=== PATIENT | female | born 1950 | race Caucasian/White ===

== ENCOUNTER 2017-04-23 22:51 | Emergency (ER) | payer MEDICARE, BC ==
[2017-04-23 23:23] VITALS: BP 140/84
[2017-04-23] MEDS ORDERED: Ketorolac 60 MG/2 ML SDV IM ONE (23:32)
[2017-04-23] MEDS ORDERED: Acetaminophen/HYDROcodone 325-5 MG Tab PO ONE (23:32)
--- NOTE | 2017-04-24 00:20 | EDM.PDOC ---
ED HPI GENERAL MEDICAL PROBLEM - General Chief Complaint: Lower Extremity Injury/Pain Stated Complaint: HURT FOOT Time Seen by Provider: 04/23/17 23:11 Source of Information: Reports: Patient History Limitations: Reports: No Limitations - History of Present Illness INITIAL COMMENTS - FREE TEXT/NARRATIVE: left foot and ankle pain; this is a 67 year old female present to ER with Son. reports at 4 pm today, her Grandchildren were making a tent out of chair, she went to observe and a heavy oak dining chair fell on her ankle foot. now with throbbing pain, increase pain with walking. she could no longer stand the pain and came to ER for evaluation. no other concerns. Onset: Today Onset Date: 04/23/17 Onset Time: 16:00 Duration: Hour(s): Location: Reports: Lower Extremity, Left Quality: Reports: Sharp, Throbbing Severity: Moderate Improves with: Reports: None Worsens with: Reports: Movement Context: Reports: Other (blunt force injury) Associated Symptoms: Reports: No Other Symptoms Treatments CLINICAL PROFESSOR: Reports: Acetaminophen left foot Pain Score (Numeric/FACES): 10 - Related Data Allergies Allergy/AdvReac Type Severity Reaction Status Date / Time No Known Allergies Allergy Verified 04/23/17 23:49 Home Meds: Home Meds NK [No Known Home Meds] 04/23/17 [History] Past Medical History 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: - Past Surgical History HEENT Surgical History: Reports: Eye Surgery Female Surgical History: Reports: Section Social & Family History - Tobacco Use Smoking Status *Q: Current Every Day Smoker Years of Tobacco use: 55 Packs/Tins Daily: 0.7 - Alcohol Use Days Per Week of Alcohol Use: 3 Number of Drinks Per Day: 5 Total Drinks Per Week: 15 - Recreational Drug Use Recreational Drug Use: No Review of Systems - Review of Systems Review Of Systems: See Below Constitutional: Reports: Other (left ankle and foot didi) Eyes: Reports: No Symptoms Ears: Reports: No Symptoms Nose: Reports: No Symptoms Mouth/Throat: Reports: No Symptoms Respiratory: Reports: No Symptoms Cardiovascular: Reports: No Symptoms GI/Abdominal: Reports: No Symptoms Skin: Reports: Bruising (left ankle) Neurological: Reports: No Symptoms Psychiatric: Reports: No Symptoms ED EXAM, GENERAL - Physical Exam Exam: See Below Exam Limited By: No Limitations General Appearance: Alert, WD/WN, No Apparent Distress, Other (sitting in wheelchair.) Head: Atraumatic, Normocephalic Neck: Normal Inspection, Supple Respiratory/Chest: No Respiratory Distress Extremities: Limited Range of Motion, Other (left anterior ankle with small bruising noted, has increased pain with any movement.) Neurological: Alert, Oriented, No Motor/Sensory Deficits Psychiatric: Normal Affect, Normal Mood Skin Exam: Warm, Dry, Intact, Ecchymosis (2cm area of brusing is noted to anterior ankle and foot. ) Lymphatic: No Adenopathy Course - Vital Signs Last Recorded V/S: Last Vital Signs Temp 35.9 C 04/23/17 23:34 Pulse 74 04/23/17 23:34 Resp 20 04/23/17 23:34 BP 140/84 04/23/17 23:34 Pulse Ox 99 04/23/17 23:34 - Orders/Labs/Meds Orders: Active Orders 24 hr Category Date Time Status Ankle Min 3V Lt [CR] Stat Exams 04/23/17 23:30 Taken Foot 2V Lt [CR] Stat Exams 04/23/17 23:30 Taken DME for Discharge [COMM] Urgent Oth 04/24/17 00:15 Ordered Meds: Medications Discontinued Medications Generic Name Dose Route Start Last Admin Trade Name Freq PRN Reason Stop Dose Admin Hydrocodone Bitart/Acetaminophen 1 tab 04/23/17 23:32 04/23/17 23:39 [place] 325-5 Mg PO 04/23/17 23:33 1 tab ONETIME ONE Administration Ketorolac Tromethamine 60 mg 04/23/17 23:32 04/23/17 23:40 Toradol IM 04/23/17 23:33 60 mg ONETIME ONE Administration - Radiology Interpretation Free Text/Narrative:: xray of foot and ankle are negative for acute bony injury this was reviewed with Macey Jillian, advised to follow up with Primary Care in 3 to4 days for recheck will place in Ortho boot for comfort Mrs. Walsh agrees with plan of care Departure - Departure Time of Disposition: 00:49 Disposition: Home, Self-Care 01 Clinical Impression: Ankle contusion Qualifiers: Encounter type: initial encounter Laterality: left Qualified Code(s): S90.02XA - Contusion of left ankle, initial encounter - Discharge Information Instructions: Contusion, [id number] Referrals: PCP,None [Primary Care Provider] - Forms: ED Department Discharge Care Plan Goals: Ankle Contusion -Xray of foot and ankle are negative for broken bone, await radiologist report -wear Orthopedic boot until xray reports are complete -follow up with Primary Care Provider in 3 days -Tramadol 50mg 1 tab every 6 hr as needed for pain -over the counter; Tylenol or Motrin for pain Advise -rest -no weight bearing, wear orthopedic boot -ice for comfort -take medication as prescribed. Return to Clinic or ER for any increase pain,fever, chills, nausea, vomiting, rash or not improved - Problem List & Annotations (1) Ankle contusion SNOMED Code(s): 91760669 Code(s): S90.00XA - CONTUSION OF UNSPECIFIED ANKLE, INITIAL ENCOUNTER Status: Acute Priority: Medium Qualifiers: Encounter type: initial encounter Laterality: left Qualified Code(s): S90.02XA - Contusion of left ankle, initial encounter - Problem List Review Problem List Initiated/Reviewed/Updated: Yes - My Orders Last 24 Hours: My Active Orders 04/23/17 23:30 Ankle Min 3V Lt [CR] Stat Foot 2V Lt [CR] Stat 04/24/17 00:15 DME for Discharge [COMM] Urgent - Assessment/Plan Last 24 Hours: My Active Orders 04/23/17 23:30 Ankle Min 3V Lt [CR] Stat Foot 2V Lt [CR] Stat 04/24/17 00:15 DME for Discharge [COMM] Urgent Plan: Ankle Contusion -Xray of foot and ankle are negative for broken bone, await radiologist report -wear Orthopedic boot until xray reports are complete -follow up with Primary Care Provider in 3 days -Tramadol 50mg 1 tab every 6 hr as needed for pain -over the counter; Tylenol or Motrin for pain Advise -rest -no weight bearing, wear orthopedic boot -ice for comfort -take medication as prescribed. Return to Clinic or ER for any increase pain,fever, chills, nausea, vomiting, rash or not improved
--- NOTE | 2017-04-25 09:08 | CR ---
Ankle Min 3V Lt, Foot 2V Lt INDICATION: pain and bruising at anterior foot. FINDINGS: Negative left foot and ankle. No acute fracture.
--- NOTE | 2017-04-25 09:08 | CR ---
Ankle Min 3V Lt, Foot 2V Lt INDICATION: pain and bruising at anterior foot. FINDINGS: Negative left foot and ankle. No acute fracture.
== END 2017-04-24 00:49 | disposition home or self-care (01) ==
LOC: JP.ED 22:51
DX: S90.02XA Contusion of left ankle, initial encounter (principal); S90.32XA Contusion of left foot, initial encounter; F17.210 Nicotine dependence, cigarettes, uncomplicated; Z98.890 Other specified postprocedural states; W20.8XXA Other cause of strike by thrown, projected or falling object, initial encounter
CPT/HCPCS: 73610; 73620; 96372; 99284; A9270; J1885; 99283

== ENCOUNTER 2021-08-29 11:44 | Emergency (ER) | payer MEDICARE, BC ==
[2021-08-29 12:16] VITALS: BP 165/84; PULSE 99
[2021-08-29] MEDS: Ondansetron 4 MG Tab.DIS PO ONE (12:40)
[2021-08-29] MEDS: Ibuprofen 400 MG Tab PO ONE (12:41)
[2021-08-29] MEDS: Famotidine 20 MG Tab PO ONE (12:42)
[2021-08-29 13:22] LABS: CORONAVIRUS COVID-19 NAA POSITIVE (NEGATIVE)
== END 2021-08-29 13:48 | disposition home or self-care (01) ==
LOC: JP.ED 11:44
DX: U07.1 COVID-19 (principal); J01.00 Acute maxillary sinusitis, unspecified; Z72.0 Tobacco use
CPT/HCPCS: 0241U; 99283; 99284; A9270-GY; Q0162

== ENCOUNTER 2021-08-30 17:51 | Inpatient (IN) | payer MEDICARE, BC ==
[2021-08-30] MEDS ORDERED: Lactated Ringers 1,000 ML IV ONE (17:59)
[2021-08-30] MEDS ORDERED: Acetaminophen 325 MG Tab PO PRN (17:59)
[2021-08-30] MEDS ORDERED: Dexamethasone 4 MG/ML SDV IVPUSH SCH (18:15)
[2021-08-30] MEDS ORDERED: Sodium Chloride 3% 500 ML IV SCH (19:30)
[2021-08-30] MEDS ORDERED: REMDESIVIR 200 MG in Sodium Chloride 0.9% 250 ML IV ONE (19:34)
[2021-08-30] MEDS ORDERED: Potassium Chloride 20 MEQ Tab.ER PO ONE (20:07)
[2021-08-30] MEDS ORDERED: Sodium Chloride 0.9% 1,000 ML IV SCH (20:15)
[2021-08-30] MEDS ORDERED: Polyethylene Glycol 3350 Powder 17 GM Packet PO PRN (20:54)
[2021-08-30] MEDS ORDERED: Sodium Chloride 0.9% 10 ML Syringe FLUSH PRN (20:54)
[2021-08-30] MEDS: Enoxaparin 40 MG/0.4 ML Syringe SUBCUT SCH (22:22)
[2021-08-30] MEDS: Melatonin 3 MG Tab PO PRN (22:22)
[2021-08-30] MEDS: Acetaminophen 325 MG Tab PO PRN (22:23)
[2021-08-30] MEDS: Ondansetron 4 MG/2 ML SDV IV PRN (22:26)
[2021-08-31] MEDS ORDERED: Ibuprofen 400 MG Tab PO ONE (00:41)
[2021-08-31] MEDS ORDERED: diphenhydrAMINE 25 MG Cap PO ONE (00:42)
[2021-08-31] MEDS: Ondansetron 4 MG/2 ML SDV IV PRN ×2 (06:30→10:52)
[2021-08-31] MEDS ORDERED: Sodium Chloride 3% 500 ML IV SCH (10:30)
[2021-08-31] MEDS ORDERED: Sodium Chloride 3% 100 ML IV SCH ×2 (10:39→15:30)
[2021-08-31] MEDS: Acetaminophen 325 MG Tab PO PRN (10:52)
[2021-08-31] MEDS: Prochlorperazine 10 MG Tab PO PRN (12:44)
[2021-08-31] MEDS: LORazepam 0.5 MG Tab PO PRN ×2 (12:44→23:59)
[2021-08-31] MEDS: Enoxaparin 40 MG/0.4 ML Syringe SUBCUT SCH (20:14)
[2021-08-31] MEDS: REMDESIVIR 100 MG in Sodium Chloride 0.9% 100 ML IV SCH (20:14)
[2021-08-31] MEDS: Dexamethasone 4 MG/ML SDV IVPUSH SCH (20:14)
[2021-08-31] MEDS: Melatonin 3 MG Tab PO PRN (23:59)
[2021-09-01] MEDS: LORazepam 0.5 MG Tab PO PRN ×4 (05:55→22:35)
[2021-09-01] MEDS: Acetaminophen 325 MG Tab PO PRN (05:56)
[2021-09-01] MEDS: Ondansetron 4 MG/2 ML SDV IV PRN ×3 (05:56→22:24)
[2021-09-01] MEDS ORDERED: Potassium Chloride 20 MEQ Tab.ER PO ONE (08:20)
[2021-09-01] MEDS: Prochlorperazine 10 MG Tab PO PRN (16:18)
[2021-09-01] MEDS: Dexamethasone 4 MG/ML SDV IVPUSH SCH (22:20)
[2021-09-01] MEDS: Enoxaparin 40 MG/0.4 ML Syringe SUBCUT SCH (22:22)
[2021-09-01] MEDS: REMDESIVIR 100 MG in Sodium Chloride 0.9% 100 ML IV SCH (22:23)
[2021-09-01] MEDS: Melatonin 3 MG Tab PO PRN (22:35)
[2021-09-02] MEDS: Ondansetron 4 MG/2 ML SDV IV PRN ×2 (06:13→13:28)
[2021-09-02] MEDS ORDERED: Potassium Chloride 20 MEQ Tab.ER PO ONE (08:14)
[2021-09-02] MEDS: LORazepam 0.5 MG Tab PO PRN ×2 (08:17→18:41)
[2021-09-02] MEDS ORDERED: Iopamidol 612 MG/ML 100 ML Bottle IV SCH (15:00)
[2021-09-02] MEDS ORDERED: Sodium Chloride 0.9% 80 ML IV SCH (15:00)
[2021-09-02] MEDS ORDERED: Nicotine 21 MG/24 Hr Patch TRDERM SCH (18:00)
[2021-09-02] MEDS: Dexamethasone 4 MG/ML SDV IVPUSH SCH (20:36)
[2021-09-02] MEDS: Melatonin 3 MG Tab PO PRN (20:36)
[2021-09-02] MEDS: Enoxaparin 40 MG/0.4 ML Syringe SUBCUT SCH (20:37)
[2021-09-02] MEDS: REMDESIVIR 100 MG in Sodium Chloride 0.9% 100 ML IV SCH (20:37)
[2021-09-03] MEDS: LORazepam 0.5 MG Tab PO PRN ×3 (02:16→16:16)
[2021-09-03] MEDS: Acetaminophen 325 MG Tab PO PRN (05:03)
[2021-09-03] MEDS: Prochlorperazine 10 MG Tab PO PRN (13:22)
[2021-09-03] MEDS ORDERED: Nicotine 21 MG/24 Hr Patch TRDERM SCH (18:00)
[2021-09-03] MEDS: REMDESIVIR 100 MG in Sodium Chloride 0.9% 100 ML IV SCH (20:46)
[2021-09-03] MEDS: Dexamethasone 4 MG/ML SDV IVPUSH SCH (20:55)
[2021-09-03] MEDS: Enoxaparin 40 MG/0.4 ML Syringe SUBCUT SCH (20:56)
[2021-09-03] MEDS: Melatonin 3 MG Tab PO PRN (22:36)
[2021-09-04 07:47] VITALS: BP 130/72; PULSE 84
== END 2021-09-04 11:00 | disposition home or self-care (01) | DRG 177 ==
LOC: JP.ED 17:51 → JP.2SS 20:10
PROVIDERS: ADMIT Hospitalist; ATTEND Internal Medicine
PROC: 8E0ZXY6 Isolation (ICD-10-PCS; principal; 2021-08-30)
PROC: XW033E5 Introduction of Remdesivir Anti-infective into Peripheral Vein, Percutaneous Approach, New Technology Group 5 (ICD-10-PCS; 2021-08-30)
PROC: 3E0333Z Introduction of Anti-inflammatory into Peripheral Vein, Percutaneous Approach (ICD-10-PCS; 2021-08-30)
DX: U07.1 COVID-19 (principal); J12.82 Pneumonia due to coronavirus disease 2019; E87.1 Hypo-osmolality and hyponatremia; N83.8 Other noninflammatory disorders of ovary, fallopian tube and broad ligament; J43.1 Panlobular emphysema; R09.02 Hypoxemia; Z72.0 Tobacco use; Z86.16 Personal history of COVID-19; Z98.890 Other specified postprocedural states
CPT/HCPCS: 36415; 71045; 71045-26; 71260; 74177; 76857; 76857-26; 80048; 80053; 81001; 82248; 82728; 82803; 83550; 83605; 83615; 84145; 84295; 84439; 84443; 84484; 85025; 85379; 86140; 93005; 93010; 94762; 97110-GP; 97162-GP; 97530-GP; 99285; 99285-25; A9270-GY; J0248; J1100; J1650; J2405; J7030; J7050; J7120; J7131; Q0164; Q9967

== ENCOUNTER 2021-10-15 07:52 | Emergency (ER) | payer MEDICARE, BC ==
[2021-10-15 08:37] VITALS: BP 141/73; PULSE 76
[2021-10-15] MEDS ORDERED: methylPREDNISolone Sodium Succinate 125 MG/2 ML SDV IM ONE (09:15)
== END 2021-10-15 10:52 | disposition home or self-care (01) ==
LOC: JP.ED 07:52
DX: R41.0 Disorientation, unspecified (principal); F41.9 Anxiety disorder, unspecified; F17.210 Nicotine dependence, cigarettes, uncomplicated; Z88.0 Allergy status to penicillin; Z88.1 Allergy status to other antibiotic agents
CPT/HCPCS: 36415; 70450; 80053; 82550; 85025; 99282; 99285-25

== ENCOUNTER 2021-12-12 22:17 | Emergency (ER) | payer MEDICARE, BC ==
[2021-12-12 23:06] VITALS: BP 168/82; PULSE 87
== END 2021-12-13 00:04 | disposition home or self-care (01) ==
LOC: JP.ED 22:17
DX: M54.50 Low back pain, unspecified (principal); F41.9 Anxiety disorder, unspecified; Z79.899 Other long term (current) drug therapy; Z88.0 Allergy status to penicillin; Z88.1 Allergy status to other antibiotic agents
CPT/HCPCS: 99283; 99284

== ENCOUNTER 2022-07-04 11:04 | Emergency (ER) | payer MEDICARE, BC ==
[2022-07-04] MEDS ORDERED: Sodium Chloride 0.9% 10 ML Syringe FLUSH PRN (11:53)
[2022-07-04] MEDS ORDERED: fentaNYL 100 MCG/2 ML SDV IVPUSH ONE (11:55)
[2022-07-04] MEDS ORDERED: Albuterol/Ipratropium 3.0-0.5 MG/3 ML Neb Soln NEB ONE (11:57)
[2022-07-04] MEDS ORDERED: Lactated Ringers 1,000 ML IV SCH (12:00)
[2022-07-04] MEDS ORDERED: Iopamidol 612 MG/ML 100 ML Bottle IV PRN (12:15)
[2022-07-04] MEDS ORDERED: Sodium Chloride 0.9% 100 ML IV SCH (12:15)
[2022-07-04 12:50] LABS: ESTIMATED GFR 98 mL/min (>60); TROPONIN I HIGH SENSITIVITY 7.9 pg/mL (<=60.3)
[2022-07-04 14:12] VITALS: BP 144/73; PULSE 75
== END 2022-07-04 14:49 | disposition home or self-care (01) ==
LOC: JP.ED 11:04
DX: R19.00 Intra-abdominal and pelvic swelling, mass and lump, unspecified site (principal); J44.9 Chronic obstructive pulmonary disease, unspecified; Z72.0 Tobacco use; Z88.1 Allergy status to other antibiotic agents; Z88.0 Allergy status to penicillin
CPT/HCPCS: 36415; 71046; 74177; 80053; 81001; 83605; 83690; 84145; 84484; 85025; 93005; 94640; 96361; 96374; 99284; J3010; J3490; J7120; Q9967; J7620

== ENCOUNTER 2022-07-09 19:06 | Emergency (ER) | payer MEDICARE, BC ==
[2022-07-09 19:13] VITALS: BP 175/94; PULSE 96
[2022-07-09 20:34] LABS: ESTIMATED GFR 98 mL/min (>60)
[2022-07-09 20:55] LABS: CORONAVIRUS COVID-19 NAA NEGATIVE (NEGATIVE)
== END 2022-07-09 22:21 | disposition home or self-care (01) ==
LOC: JP.ED 19:06
DX: J40 Bronchitis, not specified as acute or chronic (principal); M54.50 Low back pain, unspecified; J44.9 Chronic obstructive pulmonary disease, unspecified; F17.210 Nicotine dependence, cigarettes, uncomplicated; Z88.0 Allergy status to penicillin; Z88.1 Allergy status to other antibiotic agents; Z20.822 Contact with and (suspected) exposure to COVID-19
CPT/HCPCS: 0241U; 36415; 70450; 71045; 80053; 85025; 99284

== ENCOUNTER 2022-08-19 10:10 | Day surgery (SDC) | payer MEDICARE, BC ==
[2022-08-19] MEDS ORDERED: Sodium Chloride 0.9% 10 ML Syringe FLUSH PRN (12:49)
[2022-08-19] MEDS ORDERED: Ciprofloxacin in D5W 400 MG in Premix Bag 1 BAG IV ONE ×2 (12:50)
[2022-08-19] MEDS ORDERED: metroNIDAZOLE/Normal Saline 500 MG in Premix Bag 1 BAG IV ONE (12:51)
[2022-08-19] MEDS ORDERED: Sodium Chloride 0.9% 1,000 ML IV SCH ×2 (13:00→15:30)
[2022-08-19] MEDS ORDERED: Meropenem 500 MG SDV ONE (13:49)
[2022-08-19] MEDS ORDERED: Lidocaine 1% with EPINEPHrine 1:100,000 50 ML MDV ONE (13:50)
[2022-08-19] MEDS ORDERED: Propofol 200 MG/20 ML SDV ONE (14:39)
[2022-08-19] MEDS ORDERED: Midazolam 1 MG/ML 2 ML SDV ONE (14:39)
[2022-08-19] MEDS ORDERED: fentaNYL 100 MCG/2 ML SDV ONE (14:39)
[2022-08-19 14:47] LABS: CORONAVIRUS COVID-19 NAA NEGATIVE (NEGATIVE)
[2022-08-19] MEDS ORDERED: Ondansetron 4 MG Tab.DIS PO PRN (15:32)
[2022-08-19] MEDS ORDERED: Acetaminophen 500 MG Tab PO SCH (16:00)
[2022-08-19] MEDS: oxyCODONE 5 MG Tab PO PRN (20:19)
[2022-08-19] MEDS: metroNIDAZOLE/Normal Saline 500 MG in Premix Bag 1 BAG IV SCH (21:10)
[2022-08-19] MEDS: Acetaminophen 500 MG Tab PO SCH (21:10)
[2022-08-20] MEDS ORDERED: Ciprofloxacin in D5W 400 MG in Premix Bag 1 BAG IV SCH ×2 (02:00)
[2022-08-20] MEDS: oxyCODONE 5 MG Tab PO PRN ×2 (02:34→09:00)
[2022-08-20] MEDS: Acetaminophen 500 MG Tab PO SCH (05:30)
[2022-08-20] MEDS: metroNIDAZOLE/Normal Saline 500 MG in Premix Bag 1 BAG IV SCH (05:31)
[2022-08-20 06:35] LABS: ESTIMATED GFR 123 mL/min (>60)
[2022-08-20 07:15] VITALS: BP 125/68; PULSE 80
== END 2022-08-20 11:32 | disposition home or self-care (01) ==
LOC: JP.ED 10:10 → JP.SDS 13:30 → JP.ICU 15:27 → UNDOADMOB 15:27 → JP.ICU 15:27 → UNDODISOB 08-20 10:25 → JP.SDS 08-20 11:32
PROVIDERS: ATTEND Student in an Organized Health Care Education/Training Program
DX: T81.31XA Disruption of external operation (surgical) wound, not elsewhere classified, initial encounter (principal); K43.9 Ventral hernia without obstruction or gangrene; C56.9 Malignant neoplasm of unspecified ovary; K55.069 Acute infarction of intestine, part and extent unspecified; J44.9 Chronic obstructive pulmonary disease, unspecified; G89.29 Other chronic pain; M54.9 Dorsalgia, unspecified; J90 Pleural effusion, not elsewhere classified; K21.9 Gastro-esophageal reflux disease without esophagitis; Z79.899 Other long term (current) drug therapy; Z20.822 Contact with and (suspected) exposure to COVID-19; Z88.0 Allergy status to penicillin; Z88.1 Allergy status to other antibiotic agents; Z90.710 Acquired absence of both cervix and uterus; Z98.890 Other specified postprocedural states; Z87.891 Personal history of nicotine dependence
CPT/HCPCS: 0241U; 36415; 49255; 49900; 71046; 80048; 80053; 82040; 85025; 85027; 88305; 88341; 88342; 93005; 93010; 96365; 96375; 99285; A9270; J0744; J2185; J2250; J2704; J3010; J3490; J7030; U0002

== ENCOUNTER 2023-02-13 13:47 | Emergency (ER) | payer MEDICARE, BC ==
[2023-02-13 15:55] LABS: BASOPHILS ABSOLUTE AUTO 0.06 K/uL (0.00-0.10); BASOPHILS PERCENT AUTO 0.7 % (0.1-1.3); EOSINOPHILS ABSOLUTE AUTO 0.54 K/uL (0.00-0.40); EOSINOPHILS PERCENT AUTO 6.1 % (0.0-5.4); HEMATOCRIT 38.3 % (34.3-46.0); HEMOGLOBIN 12.1 g/dL (11.2-15.5); IMMATURE GRAN ABSOLUTE AUTO 0.03 K/uL (0.00-0.23); IMMATURE GRAN PERCENT AUTO 0.3 % (0.0-0.7); LYMPHOCYTES ABSOLUTE AUTO 1.66 K/uL (0.8-3.3); LYMPHOCYTES PERCENT AUTO 18.6 % (11.4-47.7); MEAN CORPUSCULAR HEMOGLOBIN 26.1 pg (31.6-35.5); MEAN CORPUSCULAR HGB CONC 31.6 g/dL (31.6-35.5); MEAN CORPUSCULAR VOLUME 82.5 fL (81.4-99.0); MONOCYTES ABSOLUTE AUTO 0.92 K/uL (0.20-0.90); MONOCYTES PERCENT AUTO 10.3 % (3.3-12.6); PLATELET COUNT,PLT 459 K/uL (130-375); RED BLOOD CELL COUNT 4.64 M/uL (3.77-5.24); WHITE BLOOD CELL COUNT,WBC 8.9 K/uL (3.2-11.0)
[2023-02-13 16:10] LABS: CREATININE 0.4 mg/dL (0.6-1.0); EST CRCL DRUG DOSING (CG) 95.42 mL/min; POTASSIUM,K 4.4 mmol/L (3.6-5.2)
[2023-02-13 16:26] LABS: ANION GAP 10.4 mmol/L (5.0-14.0)
[2023-02-13 16:40] VITALS: BP 149/78; PULSE 87
== END 2023-02-13 17:14 | disposition home or self-care (01) ==
LOC: JP.ED 13:47
DX: R05.3 Chronic cough (principal); J44.9 Chronic obstructive pulmonary disease, unspecified; Z87.891 Personal history of nicotine dependence; Z88.1 Allergy status to other antibiotic agents; Z88.0 Allergy status to penicillin; Z79.899 Other long term (current) drug therapy
CPT/HCPCS: 36415; 71046; 71046-26; 80048; 85025; 99285

== ENCOUNTER 2023-05-26 12:15 | Inpatient (IN) | payer MEDICARE, BC ==
[2023-05-26] MEDS ORDERED: Ondansetron 4 MG/2 ML SDV IV PRN (12:45)
[2023-05-26] MEDS ORDERED: Albuterol 0.083% 2.5 MG/3 ML Neb Soln NEB PRN (12:45)
[2023-05-26] MEDS ORDERED: Polyethylene Glycol 3350 Powder 17 GM Packet PO PRN (12:45)
[2023-05-26] MEDS ORDERED: Sodium Chloride 0.9% 10 ML Syringe FLUSH PRN (12:45)
[2023-05-26 13:10] LABS: BASE EXCESS ARTERIAL 7.8 mm/L; BICARBONATE,ARTERIAL 33.1 mmol/L (22.0-26.0); CARBOXYHEMOGLOBIN 2.3 % (0.0-1.6); METHEMOGLOBIN 0.8 %; O2 SATURATION ARTERIAL 94.2 % (95.0-98.0); OXYHEMOGLOBIN 91.3 %; PCO2 ARTERIAL 52.4 mmHg (35.0-42.0); PO2 ARTERIAL 65.7 mmHg (75.0-100.0); TOTAL HEMOGLOBIN 9.9 g/dL (12.0-16.0)
[2023-05-26 13:12] LABS: BASOPHILS PERCENT AUTO 0.1 % (0.1-1.3); HEMATOCRIT 30.7 % (34.3-46.0); HEMOGLOBIN 9.5 g/dL (11.2-15.5); IMMATURE GRAN ABSOLUTE AUTO 0.09 K/uL (0.00-0.23); IMMATURE GRAN PERCENT AUTO 0.7 % (0.0-0.7); LYMPHOCYTES ABSOLUTE AUTO 0.62 K/uL (0.8-3.3); LYMPHOCYTES PERCENT AUTO 4.6 % (11.4-47.7); MEAN CORPUSCULAR HEMOGLOBIN 25.9 pg (31.6-35.5); MEAN CORPUSCULAR HGB CONC 30.9 g/dL (31.6-35.5); MEAN CORPUSCULAR VOLUME 83.7 fL (81.4-99.0); MONOCYTES ABSOLUTE AUTO 0.68 K/uL (0.20-0.90); NEUTROPHILS ABSOLUTE AUTO 12.15 K/uL (1.0-7.6); NEUTROPHILS PERCENT AUTO 89.6 % (40.0-78.1); PLATELET COUNT,PLT 315 K/uL (130-375); RED BLOOD CELL COUNT 3.67 M/uL (3.77-5.24); WHITE BLOOD CELL COUNT,WBC 13.6 K/uL (3.2-11.0)
[2023-05-26 13:14] LABS: BASOPHILS ABSOLUTE AUTO 0.01 K/uL (0.00-0.10)
[2023-05-26] MEDS: Sodium Chloride 0.9% 1,000 ML IV SCH ×2 (13:18→23:17)
[2023-05-26 13:35] LABS: A/G RATIO 0.6 (1.2-2.2); ALANINE AMINOTRANSFERASE,ALT 11 U/L (12-78); ALBUMIN 2.5 g/dL (3.4-5.0); ALKALINE PHOSPHATASE 70 U/L (46-116); ANION GAP 8.5 mmol/L (5.0-14.0); ASPARTATE AMNIOTRANSFERASE,AST 18 U/L (15-37); BILIRUBIN TOTAL 0.3 mg/dL (0.2-1.0); BLOOD UREA NITROGEN,BUN 15 mg/dL (7-18); CARBON DIOXIDE,CO2 33 mmol/L (21-32); CHLORIDE,CL 97 mmol/L (100-108); CREATININE 0.3 mg/dL (0.6-1.0); EST CRCL DRUG DOSING (CG) 117.41 mL/min; ESTIMATED GFR 111 mL/min (>60); GLUCOSE RANDOM 92 mg/dL (74-106); MAGNESIUM 1.9 mg/dL (1.8-2.4); POTASSIUM,K 3.5 mmol/L (3.6-5.2); PROTEIN TOTAL,TP 6.5 g/dL (6.4-8.2); SODIUM,NA 135 mmol/L (140-148)
[2023-05-26] MEDS ORDERED: Potassium Chloride 20 MEQ Tab.ER PO ONE (14:10)
[2023-05-26] MEDS: cefTRIAXone 1 GM in Sodium Chloride 0.9% 50 ML IV SCH (14:32)
[2023-05-26] MEDS: Enoxaparin 40 MG/0.4 ML Syringe SUBCUT SCH (15:40)
[2023-05-26] MEDS: Doxycycline 100 MG in Sodium Chloride 0.9% 100 ML IV SCH (15:40)
[2023-05-26] MEDS: methylPREDNISolone Sodium Succinate 40 MG/1 ML SDV IVPUSH SCH ×2 (15:40→21:00)
[2023-05-26] MEDS ORDERED: Melatonin 3 MG Tab PO PRN (16:55)
[2023-05-26] MEDS: Acetaminophen 325 MG Tab PO PRN (17:47)
[2023-05-26] MEDS: Formoterol/Mometasone 200-5 MCG 8.8 GM Inhaler IH SCH (20:55)
[2023-05-26] MEDS ORDERED: Non-Formulary Medication 1 Each (Fluticasone Propion/Salmeterol [Fluticasone-Salmeterol 11 INH SCH (21:00)
[2023-05-27] MEDS: Doxycycline 100 MG in Sodium Chloride 0.9% 100 ML IV SCH (02:24)
[2023-05-27] MEDS: Acetaminophen 325 MG Tab PO PRN ×2 (02:53→20:38)
[2023-05-27] MEDS: methylPREDNISolone Sodium Succinate 40 MG/1 ML SDV IVPUSH SCH (05:12)
[2023-05-27 05:40] LABS: HEMATOCRIT 30.7 % (34.3-46.0); HEMOGLOBIN 9.5 g/dL (11.2-15.5); MEAN CORPUSCULAR HGB CONC 30.9 g/dL (31.6-35.5); MEAN CORPUSCULAR VOLUME 83.9 fL (81.4-99.0); RED BLOOD CELL COUNT 3.66 M/uL (3.77-5.24); WHITE BLOOD CELL COUNT,WBC 4.6 K/uL (3.2-11.0)
[2023-05-27 05:56] LABS: CALCIUM 8.3 mg/dL (8.5-10.1); CREATININE 0.4 mg/dL (0.6-1.0); EST CRCL DRUG DOSING (CG) 90.36 mL/min; POTASSIUM,K 4.2 mmol/L (3.6-5.2)
[2023-05-27 06:04] LABS: ANION GAP 7.2 mmol/L (5.0-14.0)
[2023-05-27] MEDS: Formoterol/Mometasone 200-5 MCG 8.8 GM Inhaler IH SCH ×2 (07:22→20:37)
[2023-05-27] MEDS: Sodium Chloride 0.9% 1,000 ML IV SCH (07:44)
[2023-05-27] MEDS ORDERED: predniSONE 20 MG Tab PO ONE (10:45)
[2023-05-27] MEDS: Doxycycline 100 MG Cap PO SCH ×2 (11:30→23:02)
[2023-05-27] MEDS: cefTRIAXone 1 GM in Sodium Chloride 0.9% 50 ML IV SCH (12:27)
[2023-05-27] MEDS: Enoxaparin 40 MG/0.4 ML Syringe SUBCUT SCH (15:43)
[2023-05-27] MEDS: Albuterol/Ipratropium 3.0-0.5 MG/3 ML Neb Soln NEB PRN (19:29)
[2023-05-28] MEDS: Formoterol/Mometasone 200-5 MCG 8.8 GM Inhaler IH SCH ×2 (07:34→20:08)
[2023-05-28] MEDS: predniSONE 20 MG Tab PO SCH (08:09)
[2023-05-28] MEDS: Cefdinir 300 MG Cap PO SCH ×2 (08:10→20:09)
[2023-05-28] MEDS: Doxycycline 100 MG Cap PO SCH (11:36)
[2023-05-28] MEDS: Enoxaparin 40 MG/0.4 ML Syringe SUBCUT SCH (16:35)
[2023-05-28] MEDS: Acetaminophen 325 MG Tab PO PRN (19:32)
[2023-05-28] MEDS: Albuterol/Ipratropium 3.0-0.5 MG/3 ML Neb Soln NEB PRN (20:08)
[2023-05-29] MEDS: Acetaminophen 325 MG Tab PO PRN ×2 (00:30→05:59)
[2023-05-29 05:43] VITALS: BP 129/64; PULSE 72
[2023-05-29] MEDS: Formoterol/Mometasone 200-5 MCG 8.8 GM Inhaler IH SCH (07:10)
[2023-05-29] MEDS: Cefdinir 300 MG Cap PO SCH (08:12)
[2023-05-29] MEDS: predniSONE 20 MG Tab PO SCH (08:12)
== END 2023-05-29 11:02 | disposition home health service (06) | DRG 193 ==
LOC: JP.MS 12:15
PROVIDERS: ADMIT Hospitalist; ATTEND Internal Medicine
DX: J13 Pneumonia due to Streptococcus pneumoniae (principal); J96.21 Acute and chronic respiratory failure with hypoxia; R04.2 Hemoptysis; J43.1 Panlobular emphysema; Z66 Do not resuscitate; Z20.822 Contact with and (suspected) exposure to COVID-19; F41.9 Anxiety disorder, unspecified; G89.29 Other chronic pain; M54.9 Dorsalgia, unspecified; Z98.49 Cataract extraction status, unspecified eye; Z90.710 Acquired absence of both cervix and uterus; Z79.51 Long term (current) use of inhaled steroids; Z79.899 Other long term (current) drug therapy; Z87.891 Personal history of nicotine dependence; Z88.0 Allergy status to penicillin; Z99.81 Dependence on supplemental oxygen; Z85.43 Personal history of malignant neoplasm of ovary; Z98.890 Other specified postprocedural states
CPT/HCPCS: 36415; 36600; 80048; 80053; 82803; 83735; 85025; 85027; 86140; 87040; 87070; 87077; 87184; 87205; 94640; 97110-GP; 97161-GP; 97530-GP; A9270-GY; J0696; J1650; J2920; J3490; J7030; J7512; J7620; U0002

== ENCOUNTER 2023-10-25 13:59 | Inpatient (IN) | payer MEDICARE, BC ==
[2023-10-25 16:03] LABS: BASOPHILS ABSOLUTE AUTO 0.05 K/uL (0.00-0.10); BASOPHILS PERCENT AUTO 0.4 % (0.1-1.3); EOSINOPHILS ABSOLUTE AUTO 0.15 K/uL (0.00-0.40); EOSINOPHILS PERCENT AUTO 1.2 % (0.0-5.4); HEMATOCRIT 33.1 % (34.3-46.0); HEMOGLOBIN 9.7 g/dL (11.2-15.5); IMMATURE GRAN ABSOLUTE AUTO 0.11 K/uL (0.00-0.23); IMMATURE GRAN PERCENT AUTO 0.9 % (0.0-0.7); LYMPHOCYTES ABSOLUTE AUTO 1.51 K/uL (0.8-3.3); LYMPHOCYTES PERCENT AUTO 12.1 % (11.4-47.7); MEAN CORPUSCULAR HEMOGLOBIN 25.1 pg (31.6-35.5); MEAN CORPUSCULAR HGB CONC 29.3 g/dL (31.6-35.5); MEAN CORPUSCULAR VOLUME 85.5 fL (81.4-99.0); MONOCYTES ABSOLUTE AUTO 1.23 K/uL (0.20-0.90); MONOCYTES PERCENT AUTO 9.9 % (3.3-12.6); NEUTROPHILS PERCENT AUTO 75.5 % (40.0-78.1); PLATELET COUNT,PLT 509 K/uL (130-375); RED BLOOD CELL COUNT 3.87 M/uL (3.77-5.24); WHITE BLOOD CELL COUNT,WBC 12.5 K/uL (3.2-11.0)
[2023-10-25] MEDS: LORazepam 0.5 MG Tab PO ONE (16:07)
[2023-10-25] MEDS: Albuterol/Ipratropium 3.0-0.5 MG/3 ML Neb Soln NEB ONE (16:07)
[2023-10-25 16:08] LABS: BASE EXCESS VENOUS 13.5 mm/L; BICARBONATE,VENOUS 41.3 mmol/L; CARBOXYHEMOGLOBIN 2.8 % (0.0-1.6); METHEMOGLOBIN 1.1 %; O2 SATURATION VENOUS 87.8; OXYHEMOGLOBIN 84.4 %; PCO2 VENOUS 77.3 mm/Hg; PH,VENOUS 7.348 (7.350-7.450); PO2 VENOUS 56.8 mm/Hg; TOTAL HEMOGLOBIN 10.1 g/dL (12.0-16.0)
[2023-10-25 16:30] LABS: A/G RATIO 0.8 (1.2-2.2); ALANINE AMINOTRANSFERASE,ALT 13 U/L (12-78); ALKALINE PHOSPHATASE 76 U/L (46-116); ASPARTATE AMNIOTRANSFERASE,AST 11 U/L (15-37); BILIRUBIN TOTAL 0.1 mg/dL (0.2-1.0); BLOOD UREA NITROGEN,BUN 14 mg/dL (7-18); CALCIUM 9.4 mg/dL (8.5-10.1); CARBON DIOXIDE,CO2 39 mmol/L (21-32); CHLORIDE,CL 98 mmol/L (100-108); CREATININE 0.3 mg/dL (0.6-1.0); EST CRCL DRUG DOSING (CG) 111.38 mL/min; ESTIMATED GFR 111 mL/min (>60); GLUCOSE RANDOM 103 mg/dL (74-106); POTASSIUM,K 3.7 mmol/L (3.6-5.2); PROTEIN TOTAL,TP 6.9 g/dL (6.4-8.2); SODIUM,NA 141 mmol/L (140-148)
[2023-10-25 16:32] LABS: ANION GAP 7.7 mmol/L (5.0-14.0)
[2023-10-25 16:34] LABS: CORONAVIRUS COVID-19 NAA NEGATIVE (NEGATIVE); INFLUENZA A NAA NEGATIVE (NEGATIVE); INFLUENZA B NAA NEGATIVE (NEGATIVE); RESPIRATORY SYNCYTIAL VIR NAA NEGATIVE (NEGATIVE)
[2023-10-25] MEDS: Sodium Chloride 0.9% 1,000 ML IV SCH ×2 (17:08→21:39)
[2023-10-25] MEDS: cefTRIAXone 1 GM in Sodium Chloride 0.9% 50 ML IV ONE (17:08)
[2023-10-25 19:28] LABS: APPEARANCE,URINE CLOUDY (CLEAR); BILIRUBIN,URINE NEGATIVE (NEGATIVE); COLOR,URINE YELLOW (YELLOW); GLUCOSE,URINE 250 mg/dL (NEGATIVE); KETONES,URINE TRACE mg/dL (NEGATIVE); LEUKOCYTE ESTERASE,URINE NEGATIVE (NEGATIVE); NITRITE,URINE NEGATIVE (NEGATIVE); OCCULT BLOOD,URINE TRACE-INTACT (NEGATIVE); PROTEIN,URINE 30 mg/dL (NEGATIVE); UROBILINOGEN,URINE 0.2 EU/dL (0.2-1.0)
[2023-10-25 19:34] LABS: AMORPHOUS SEDIMENT,URINE RARE; BACTERIA,URINE MODERATE; EPITHELIAL CELLS,URINE FEW; MUCUS,URINE MODERATE
[2023-10-25] MEDS ORDERED: Naloxone 0.4 MG/ML SDV IVPUSH PRN (20:53)
[2023-10-25] MEDS ORDERED: Ondansetron 4 MG Tab.DIS PO PRN (20:53)
[2023-10-25] MEDS ORDERED: Albuterol 0.083% 2.5 MG/3 ML Neb Soln NEB PRN (20:53)
[2023-10-25] MEDS ORDERED: Docusate Sodium 100 MG Cap PO PRN (20:53)
[2023-10-25] MEDS ORDERED: Enoxaparin 30 MG/0.3 ML Syringe SUBCUT SCH (20:53)
[2023-10-25] MEDS ORDERED: oxyCODONE 5 MG Tab PO PRN (20:53)
[2023-10-25] MEDS ORDERED: Bisacodyl 5 MG Tab PO PRN (20:53)
[2023-10-25] MEDS ORDERED: Morphine 2 MG/ML SYRINGE IVPUSH PRN (20:53)
[2023-10-25] MEDS: Enoxaparin 40 MG/0.4 ML Syringe SUBCUT SCH (22:13)
[2023-10-25] MEDS: Doxycycline 100 MG in Sodium Chloride 0.9% 100 ML IV SCH (22:14)
[2023-10-25] MEDS: Pantoprazole 40 MG Vial IV SCH (22:14)
[2023-10-25] MEDS: Albuterol/Ipratropium 3.0-0.5 MG/3 ML Neb Soln NEB SCH (22:14)
[2023-10-25] MEDS: methylPREDNISolone Sodium Succinate 40 MG/1 ML SDV IVPUSH SCH (22:14)
[2023-10-25] MEDS: Acetaminophen 325 MG Tab PO PRN (22:15)
[2023-10-26 05:46] LABS: BASOPHILS PERCENT AUTO 0.2 % (0.1-1.3); HEMATOCRIT 33.2 % (34.3-46.0); HEMOGLOBIN 9.6 g/dL (11.2-15.5); IMMATURE GRAN ABSOLUTE AUTO 0.06 K/uL (0.00-0.23); IMMATURE GRAN PERCENT AUTO 0.7 % (0.0-0.7); LYMPHOCYTES ABSOLUTE AUTO 0.49 K/uL (0.8-3.3); LYMPHOCYTES PERCENT AUTO 5.7 % (11.4-47.7); MEAN CORPUSCULAR HEMOGLOBIN 25.1 pg (31.6-35.5); MEAN CORPUSCULAR HGB CONC 28.9 g/dL (31.6-35.5); MEAN CORPUSCULAR VOLUME 86.7 fL (81.4-99.0); MONOCYTES ABSOLUTE AUTO 0.06 K/uL (0.20-0.90); MONOCYTES PERCENT AUTO 0.7 % (3.3-12.6); NEUTROPHILS ABSOLUTE AUTO 8.02 K/uL (1.0-7.6); NEUTROPHILS PERCENT AUTO 92.7 % (40.0-78.1); PLATELET COUNT,PLT 439 K/uL (130-375); RED BLOOD CELL COUNT 3.83 M/uL (3.77-5.24); WHITE BLOOD CELL COUNT,WBC 8.7 K/uL (3.2-11.0)
[2023-10-26 05:56] LABS: BASOPHILS ABSOLUTE AUTO 0.02 K/uL (0.00-0.10)
[2023-10-26 06:01] LABS: CALCIUM 8.9 mg/dL (8.5-10.1); CREATININE 0.4 mg/dL (0.6-1.0); EST CRCL DRUG DOSING (CG) 86.15 mL/min; POTASSIUM,K 3.9 mmol/L (3.6-5.2)
[2023-10-26 06:25] LABS: ANION GAP 5.9 mmol/L (5.0-14.0)
[2023-10-26] MEDS: Albuterol/Ipratropium 3.0-0.5 MG/3 ML Neb Soln NEB SCH (10:43)
[2023-10-26] MEDS ORDERED: Ibuprofen 600 MG Tab PO PRN (12:15)
[2023-10-26] MEDS: predniSONE 20 MG Tab PO ONE (12:36)
[2023-10-26] MEDS: LORazepam 0.5 MG Tab PO ONE (12:36)
[2023-10-26] MEDS: Sodium Chloride 0.9% 75 ML IV ONE (13:42)
[2023-10-26] MEDS: Sodium Chloride 0.9% 10 ML Syringe FLUSH PRN (13:42)
[2023-10-26] MEDS: Iopamidol 612 MG/ML 100 ML Bottle IV PRN (13:43)
[2023-10-26] MEDS: cefTRIAXone 1 GM in Sodium Chloride 0.9% 50 ML IV SCH (16:13)
[2023-10-26] MEDS: Pantoprazole 40 MG Tab.CR PO SCH (20:11)
[2023-10-27 05:21] LABS: BASOPHILS PERCENT AUTO 0.1 % (0.1-1.3); HEMATOCRIT 28.2 % (34.3-46.0); HEMOGLOBIN 8.3 g/dL (11.2-15.5); IMMATURE GRAN ABSOLUTE AUTO 0.15 K/uL (0.00-0.23); IMMATURE GRAN PERCENT AUTO 1.3 % (0.0-0.7); LYMPHOCYTES ABSOLUTE AUTO 1.19 K/uL (0.8-3.3); LYMPHOCYTES PERCENT AUTO 10.6 % (11.4-47.7); MEAN CORPUSCULAR HEMOGLOBIN 24.8 pg (31.6-35.5); MEAN CORPUSCULAR HGB CONC 29.4 g/dL (31.6-35.5); MEAN CORPUSCULAR VOLUME 84.2 fL (81.4-99.0); MONOCYTES ABSOLUTE AUTO 0.68 K/uL (0.20-0.90); MONOCYTES PERCENT AUTO 6.1 % (3.3-12.6); NEUTROPHILS ABSOLUTE AUTO 9.15 K/uL (1.0-7.6); NEUTROPHILS PERCENT AUTO 81.9 % (40.0-78.1); PLATELET COUNT,PLT 436 K/uL (130-375); RED BLOOD CELL COUNT 3.35 M/uL (3.77-5.24); WHITE BLOOD CELL COUNT,WBC 11.2 K/uL (3.2-11.0)
[2023-10-27 05:26] LABS: BASOPHILS ABSOLUTE AUTO 0.01 K/uL (0.00-0.10)
[2023-10-27 05:33] LABS: CREATININE 0.5 mg/dL (0.6-1.0); EST CRCL DRUG DOSING (CG) 68.92 mL/min; POTASSIUM,K 3.8 mmol/L (3.6-5.2)
[2023-10-27 05:38] LABS: ANION GAP 6.8 mmol/L (5.0-14.0)
[2023-10-27] MEDS: predniSONE 20 MG Tab PO SCH (08:56)
[2023-10-27] MEDS: FLU (Fluad Quad) 2023-24(65UP)/MF59C/PF 60 MCG/0.5 ML Syringe IM ONE (09:00)
[2023-10-27] MEDS: Pneumococcal 20-Valent Conjug 0.5 ML Syringe IM ONE (09:03)
[2023-10-27 10:22] VITALS: PULSE 90
[2023-10-27 11:53] VITALS: BP 120/61
== END 2023-10-27 13:20 | disposition home or self-care (01) | DRG 193 ==
LOC: JP.ED 13:59 → JP.MS 20:06
PROVIDERS: ADMIT Internal Medicine; ATTEND Internal Medicine
PROC: 4A033R1 Measurement of Arterial Saturation, Peripheral, Percutaneous Approach (ICD-10-PCS; principal; 2023-10-25)
DX: J18.9 Pneumonia, unspecified organism (principal); J44.9 Chronic obstructive pulmonary disease, unspecified; J96.21 Acute and chronic respiratory failure with hypoxia; J44.0 Chronic obstructive pulmonary disease with (acute) lower respiratory infection; R64 Cachexia; Z68.1 Body mass index [BMI] 19.9 or less, adult; F41.9 Anxiety disorder, unspecified; Z66 Do not resuscitate; K52.9 Noninfective gastroenteritis and colitis, unspecified; M54.9 Dorsalgia, unspecified; G89.29 Other chronic pain; F32.A Depression, unspecified; J43.9 Emphysema, unspecified; R79.1 Abnormal coagulation profile; N63.20 Unspecified lump in the left breast, unspecified quadrant; Z88.0 Allergy status to penicillin; Z88.1 Allergy status to other antibiotic agents; Z79.51 Long term (current) use of inhaled steroids; Z79.899 Other long term (current) drug therapy; Z86.16 Personal history of COVID-19; Z98.49 Cataract extraction status, unspecified eye; Z90.89 Acquired absence of other organs; Z98.890 Other specified postprocedural states; Z90.710 Acquired absence of both cervix and uterus; Z87.891 Personal history of nicotine dependence; Z85.43 Personal history of malignant neoplasm of ovary; Z99.81 Dependence on supplemental oxygen
CPT/HCPCS: 0241U; 36415; 71045; 71275; 80048; 80053; 81001; 82803; 83605; 84145; 85025; 85379; 87040; 90677; 90694; 94640; 97161; 99222; 99232; 99238; 77066; 77066-26; 96361; 96365; 99285; 99285-25; A9270-GY; C9113; G0008; G0009; G0279; G0279-26; J0696; J1650; J2920; J3490; J7030; J7512; J7620; Q9967